=== PATIENT | female | born 1995 | race Caucasian/White ===

== ENCOUNTER 2025-06-17 13:16 | Outpatient (AMB) | payer OTHER, SELFPAY ==
[2025-06-17 13:17] VITALS: BP 102/58; PULSE 96; RESP 12; TEMP 36.9; O2SAT 99; BMI 25.0
--- NOTE | 2025-06-17 13:17 | A.OFFPC_ITS ---
Vital Signs 06/17/25 13:17 Height 5 ft 3.46 in Weight 143 lb 2 oz BMI 25.0 BP 102/58 L Blood Pressure Location Rt brachial Position Sitting Respiration 12 Pulse 96 Pulse Source Pulse Oximeter Temp 98.4 F Temp Source Oral Pulse Oximetry (%) 99 Oxygen Delivery Method Room Air Intake Visit Reasons: [employer] W[employer] C[employer] Intake Note: New patient visit [employer] Required: No Allergies No Known Allergies Allergy (Verified 06/17/25 13:19) Medication List - Last Reconciled 06/17/25 by Batsheva Lema PA-C escitalopram oxalate (Lexapro) 5 mg PO DAILY Tobacco use date assessed: 06/17/25 Dental Screening Dental Screen Date: 06/17/25 Did you have a dental visit in the last 12 months?: Yes Did you have a dental problem in the last 6 months where you did not have access to dental care?: No Was dental information given to patient?: Patient has dentist HPI M[employer] HPI Details Pt is a 30 y.[facility]. She has a hx of anxiety, ibs, asthma, chronic headaches, eczema, beta thalassemia GI: States that she has a history of IBS but never had a colonoscopy. She states that they diagnosed her with this many years ago and it does not appear to be improved. She says that she has constipation sometimes but definitely ge ts diarrhea every week and usually multiple times a week. She says that there is usually mucus in her stools. It does appear that she is very sensitive to gluten. She would like to go back to GI as she has a family history of inflammatory bowel disease. Psych:on lexapro 5 mg daily. States that her anxiety is not as well-controlled as she would like. She developed anxiety and states that initially the Lexapro 5 mg was very helpful but she does think that she would benefit from an increased dose. No SI/HI. Derm: follows with [facility]: 18 month old boy, follows with [facility]. Vaginal delivery. Fam hx: PFSH Surgical History (Updated 06/17/25 @ 13:41 by Tiffany Pena CMA) H/O wisdom tooth extraction Family History (Updated 06/17/25 @ 13:45 by Tiffany Pena CMA) Paternal Grandfather Alcoholic Mother HTN (hypertension) Skin cancer Father HTN (hypertension) High cholesterol Maternal Grandmother HTN (hypertension) Maternal Grandfather Lung cancer Prostate cancer Other Substance abuse Social History (Updated 06/17/25 @ 13:45 by Tiffany Pena [facility]) Housing: House Alcohol intake: current Patient Tobacco Use Status: Never used Tobacco e-Cigarette/Vaping Use: Never Used Second Hand Smoke Exposure: No service: No Current occupational status: employed Current occupation: registered nurse Current occupational exposures/hazards: Yes Cognitive needs: No Hearing needs: No Vision needs: Yes (contracts) Questionnaire PHQ-9 Over the last 2 weeks, how often have you been bothered by any of the following problems? 1. Little interest or pleasure in doing things: not at all 2. Feeling down, depressed, or hopeless: not at all 3. Trouble falling or staying asleep, or sleeping too much: not at all 4. Feeling tired or having little energy: not at all 5. Poor appetite or overeating: not at all 6. Feeling bad about yourself - or that you are a failure or have let yourself or your family down: not at all 7. Trouble concentrating on things, such as reading the newspaper or watching television: not at all 8. Moving or speaking so slowly that other people could have noticed. Or the opposite - being so fidgety or restless that you have been moving around a lot more than usual: not at all 9. Thoughts that you would be better off or of hurting yourself in some way: not at all Total score: 0 Depression Screening Interpretation: Negative Depression Screening Done: Yes 11542 - PHQ-9 Billing: Yes Source: Developed by Drs. Jarek Gaming, Radha Vo, Demetrius Mark and colleagues, with an educational margaret from [employer]. Thrive Questionnaire Date Thrive assessed: 06/14/25 I am a: Patient What is your living situation today?: I have a steady place to live Within the past 12 months, did the food you bought not last and you didn't have the money to get more?: Never true Within the past 12 months, did you worry whether your food would run out before you got money to buy more?: Never true Do you have trouble paying for medicines?: No Do you have trouble getting transportation to medical appointments?: No Do you have trouble paying your heating and electricity bill?: No Do you have trouble taking care of your child, family member or friend?: No Do you have trouble with day-to-day activities such as bathing, preparing meals, shopping, managing finances, etc.?: No Are you currently unemployed and looking for a job?: No Are you interested in more education?: No Please select the resources that you would like help with: None Currently or been in a relationship where the following occur: No concerns reported THRIVE Score: 0 AUDIT C Alcohol Use Questionnaire (AUDIT-C) 1. How often do you have a drink containing alcohol?: Monthly or less 2. How many drinks containing alcohol do you have on a typical day when you are drinking?: 1 or 2 3. How often do you have six or more drinks on one occasion?: Never Total Score: 1 STAS-7 AMB Questionnaire STAS-7 Date STAS - 7 assessed: 06/17/25 Feeling nervous, anxious, or on edge: 1 = Several days Not being able to stop or control worryin = Several days Worrying too much about different things: 1 = Several days Trouble relaxin = Not at all Being so restless that it is hard to sit still: 0 = Not at all Becoming easily annoyed or irritable: 0 = Not at all Feeling afraid as if something awful might happen: 0 = Not at all Total STAS-7 score (0-4 normal; 5-9 mild; 10-14 moderate; 15-21 severe): 3 Source: Developed by Drs. Jarek Gaming, Radha Vo, Demetrius Mark and colleagues, with an educational margaret from [employer]. STAS-7 Assessment Billing STAS-7 Assessment Tool: STAS-7 Assessment 55677 Physical exam (Primary Care) Vital Signs: Last Vital Signs Temp 98.4 F 06/17/25 13:17 Pulse 96 06/17/25 13:17 Resp 12 06/17/25 13:17 BP 102/58 L 06/17/25 13:17 Pulse Ox 99 06/17/25 13:17 Oxygen Delivery Method Room Air 06/17/25 13:17 BMI result Body Mass Index 25.0 Tobacco/Smoking Status: Tobacco use Status Tobacco use date assessed 06/17/25 06/17/25 13:25 Patient Tobacco Use Status Never used Tobacco 06/17/25 13:45 e-Cigarette/Vaping Use Never Used 06/17/25 13:45 PHQ-9: PHQ-9 Score PHQ-9: Total score 0 06/17/25 13:28 Depression Screening Interpretation: Negative Thrive Assessment: Date of Thrive Assessment Date Thrive assessed 06/14/25 06/17/25 13:25 Currently or been in a relationship where the following occur: No concerns reported Const Orientation/consciousness: patient oriented x3 HENMT Ears: hearing grossly normal bilaterally Neck Thyroid: Thyroid normal Lymphatic: no lymphadenopathy noted Resp Auscultation: clear to auscultation bilaterally Cardio Rate: regular rate Rhythm: regular rhythm Heart sounds: S1 normal heart sound present and S2 normal heart sound present GI Inspection: Yes normal to inspection Palpation (GI): Soft to palpation and Other GI palpation findings present (nontender, no cva tenderness) Auscultation: normoactive bowel sounds Rectal Exam - Female: deferred Skin General skin exam: no rashes or lesions noted Neuro General: patient oriented x3, gait normal and no focal motor deficits Coding Level of Care Code New Pt Level 4 (69506) Complex EM visit Add On G2211 Diagnoses Alternating constipation and diarrhea R19.8 Generalized abdominal pain R10.84 Generalized anxiety disorder F41.1 Additional Codes STAS-7 Assessment Billing - STAS-7 Assessment Tool: STAS-7 Assessment 66710 ([id number]) PHQ-9 - 05878 - PHQ-9 Billing: Yes ([id number]) Assessment & Plan Assessment & Plan (1) Alternating constipation and diarrhea: Code(s): R19.8 - Other specified symptoms and signs involving the digestive system and abdomen Category: Medical Plan: Referral to GI. Labs ordered today. (2) Generalized abdominal pain: Code(s): R10.84 - Generalized abdominal pain Category: Medical Plan: Ultrasound ordered Labs ordered (3) Generalized anxiety disorder: Code(s): F41.1 - Generalized anxiety disorder Category: Medical Plan: Increase Lexapro to 10 mg Short term follow up. Sooner if needed. Patient understands and agrees with this plan. Orders: Orders [facility]. Panel Fast 06/17/25 D56.1 - Beta thalassemia, F41.1 - Generalized anxiety disorder, J45.20 - Mild intermittent asthma, uncomplicated, R10.84 - Generalized abdominal pain, R19.8 - Other specified symptoms and signs involving the digestive system and abdomen, Z00.00 - Encounter for general adult medical examination without abnormal findings Erythrocyte Sedimentation Rate 06/17/25 D56.1 - Beta thalassemia, F41.1 - Generalized anxiety disorder, J45.20 - Mild intermittent asthma, uncomplicated, R10.84 - Generalized abdominal pain, R19.8 - Other specified symptoms and signs involving the digestive system and abdomen, Z00.00 - Encounter for general adult medical examination without abnormal findings Endomysial IgA rflx Titer 06/17/25 D56.1 - Beta thalassemia, F41.1 - Generalized anxiety disorder, J45.20 - Mild intermittent asthma, uncomplicated, R10.84 - Generalized abdominal pain, R19.8 - Other specified symptoms and signs involving the digestive system and abdomen, Z00.00 - Encounter for general adult medical examination without abnormal findings C Reactive Protein 06/17/25 D56.1 - Beta thalassemia, F41.1 - Generalized anxiety disorder, J45.20 - Mild intermittent asthma, uncomplicated, R10.84 - Generalized abdominal pain, R19.8 - Other specified symptoms and signs involving the digestive system and abdomen, Z00.00 - Encounter for general adult medical examination without abnormal findings Complete Blood Count Auto Diff 06/17/25 D56.1 - Beta thalassemia, F41.1 - Generalized anxiety disorder, J45.20 - Mild intermittent asthma, uncomplicated, R10.84 - Generalized abdominal pain, R19.8 - Other specified symptoms and signs involving the digestive system and abdomen, Z00.00 - Encounter for general adult medical examination without abnormal findings Lipid Panel 06/17/25 D56.1 - Beta thalassemia, F41.1 - Generalized anxiety disorder, J45.20 - Mild intermittent asthma, uncomplicated, R10.84 - Generalized abdominal pain, R19.8 - Other specified symptoms and signs involving the digestive system and abdomen, Z00.00 - Encounter for general adult medical examination without abnormal findings TSH reflex Free T4 06/17/25 D56.1 - Beta thalassemia, F41.1 - Generalized anxiety disorder, J45.20 - Mild intermittent asthma, uncomplicated, R10.84 - Generalized abdominal pain, R19.8 - Other specified symptoms and signs involving the digestive system and abdomen, Z00.00 - Encounter for general adult medical examination without abnormal findings UA CC w/rflx Micro + Cult 06/17/25 D56.1 - Beta thalassemia, F41.1 - Generalized anxiety disorder, J45.20 - Mild intermittent asthma, uncomplicated, R10.84 - Generalized abdominal pain, R19.8 - Other specified symptoms and signs involving the digestive system and abdomen, R30.0 - Dysuria, Z00.00 - Encounter for general adult medical examination without abnormal findings Vitamin B12 and Folate 06/17/25 D56.1 - Beta thalassemia, F41.1 - Generalized anxiety disorder, J45.20 - Mild intermittent asthma, uncomplicated, R10.84 - Generalized abdominal pain, R19.8 - Other specified symptoms and signs involving the digestive system and abdomen, Z00.00 - Encounter for general adult medical examination without abnormal findings Microalbumin, Random (w Creat) 06/17/25 D56.1 - Beta thalassemia, F41.1 - Generalized anxiety disorder, J45.20 - Mild intermittent asthma, uncomplicated, R10.84 - Generalized abdominal pain, R19.8 - Other specified symptoms and signs involving the digestive system and abdomen, Z00.00 - Encounter for general adult medical examination without abnormal findings Immunoglobulin A 06/17/25 D56.1 - Beta thalassemia, F41.1 - Generalized anxiety disorder, J45.20 - Mild intermittent asthma, uncomplicated, R10.84 - Generalized abdominal pain, R19.8 - Other specified symptoms and signs involving the digestive system and abdomen, Z00.00 - Encounter for general adult medical examination without abnormal findings Transglutaminase Ab IgG 06/17/25 D56.1 - Beta thalassemia, F41.1 - Generalized anxiety disorder, J45.20 - Mild intermittent asthma, uncomplicated, R10.84 - Generalized abdominal pain, R19.8 - Other specified symptoms and signs involving the digestive system and abdomen, Z00.00 - Encounter for general adult medical examination without abnormal findings Calprotectin, Fecal 06/17/25 D56.1 - Beta thalassemia, F41.1 - Generalized anxiety disorder, J45.20 - Mild intermittent asthma, uncomplicated, R10.84 - Generalized abdominal pain, R19.8 - Other specified symptoms and signs involving the digestive system and abdomen, Z00.00 - Encounter for general adult medical examination without abnormal findings US abdomen complete 06/17/25 R10.84 - Generalized abdominal pain, R19.8 - Other specified symptoms and signs involving the digestive system and abdomen Referrals Gastroenterology Referral R10.84 - Generalized abdominal pain, R19.8 - Other specified symptoms and signs involving the digestive system and abdomen Medications: New escitalopram oxalate (Lexapro) 10 mg PO DAILY 90 tabs 2RF
== END 2025-06-17 13:49 | disposition home or self-care (01) ==
LOC: HO.HMCFM 13:16
PROVIDERS: PCP Physician Assistant; Visit Provider Physician Assistant
DX: R19.8 Other specified symptoms and signs involving the digestive system and abdomen (principal); R10.84 Generalized abdominal pain; F41.1 Generalized anxiety disorder

== ENCOUNTER → 2025-06-17 13:16 | Outpatient (BNVA) | payer OTHER, SELFPAY | PROVIDERS: PCP Physician Assistant; Visit Provider Physician Assistant | DX: K58.1 Irritable bowel syndrome with constipation (principal); K58.0 Irritable bowel syndrome with diarrhea; R10.84 Generalized abdominal pain; F41.1 Generalized anxiety disorder; R19.8 Other specified symptoms and signs involving the digestive system and abdomen; Z79.899 Other long term (current) drug therapy | CPT/HCPCS: 96127 ==